=== PATIENT | male | born 1940 | race Caucasian/White ===

== ENCOUNTER 2019-10-21 07:27 | Outpatient (CLI) | payer MEDICARE ==
[2019-10-28] MEDS ORDERED: REGADENOSON 0.4 MG/5 ML SYRINGE ONE (07:43)
== END 2019-10-21 23:59 | disposition home or self-care (01) ==
LOC: CFH 07:27
PROVIDERS: ATTEND Internal Medicine Cardiovascular Disease
DX: Z02.9 Encounter for administrative examinations, unspecified (principal)
CPT/HCPCS: 90935; G0257; J2785

== ENCOUNTER 2019-10-28 08:00 | Outpatient (CLI) | payer MEDICARE ==
[~2019-10-28 08:00] MED LIST: REGADENOSON 0.4 MG/5 ML SYRINGE ONE
== END 2019-10-28 23:59 | disposition home or self-care (01) ==
LOC: CFH 08:00
PROVIDERS: ATTEND Internal Medicine Cardiovascular Disease
DX: R07.89 Other chest pain (principal)
CPT/HCPCS: 78452; 93017; A9502; J2785; 93306

== ENCOUNTER 2019-10-29 15:59 | Outpatient (CLI) | payer MEDICARE | END 2019-10-29 23:59 | disposition home or self-care (01) | LOC: CFH 15:59 | PROVIDERS: ATTEND Internal Medicine Cardiovascular Disease | DX: R07.89 Other chest pain (principal); E78.5 Hyperlipidemia, unspecified; E11.9 Type 2 diabetes mellitus without complications; Z87.891 Personal history of nicotine dependence | CPT/HCPCS: 93306 ==